=== PATIENT | male | born 1950 | race Caucasian/White ===

== ENCOUNTER 2024-04-30 08:58 | Inpatient (IN) | payer OTHER ==
[2024-04-30] VITALS (17 sets, daily range): BP systolic 119–159; BP diastolic 44–61
[~2024-04-30] VITALS: Ht 182.9 cm; Wt 113.4 kg
[2024-04-30] MEDS ORDERED: NS 1,000 ML IV SCH ×2 (09:10→11:30)
[2024-04-30] MEDS ORDERED: Aspir 8181 MG PO (09:25)
[2024-04-30] MEDS ORDERED: ALBU90OI INH (09:26)
[2024-04-30] MEDS ORDERED: ATOR40TA PO (09:26)
[2024-04-30] MEDS ORDERED: HYDACE10B PO (09:27)
[2024-04-30] MEDS ORDERED: LISI20 PO (09:28)
[2024-04-30] MEDS ORDERED: METFORMIN HCL500 M2 PO (09:28)
[2024-04-30] MEDS ORDERED: HUMULIN N100 UNIT/6 SC (09:29)
[2024-04-30 09:44] LABS: Base Excess Venous -7.8 mmol/L; Bicarbonate Venous 19.2 mmol/L (24.0-30.0); PCO2 Venous 30.9 mmHg (38-42); pH Blood Venous 7.36 (7.34-7.37)
[2024-04-30 10:20] LABS: Albumin, Blood 3.2 g/dL (3.4-5.0); Albumin/Globulin Ratio 0.9 (0.8-1.8); Bilirubin, Total 0.9 mg/dL (0.1-1.0); Bun/Creatinine Ratio 12.7 (12.0-20.0); Calcium, Blood 9.1 mg/dL (8.5-10.1); Creatinine, Blood 1.57 mg/dL (0.60-1.20); Globulin, Blood 3.6 g/dL (2.2-4.0); Potassium, Blood 4.6 mmol/L (3.5-5.5); Total Protein, Blood 6.8 g/dL (6.4-8.2)
[2024-04-30] MEDS ORDERED: Ampicillin Sod/Sulbactam Sod 3 GM in NS 100 ML IV ONE (10:40)
[2024-04-30] MEDS ORDERED: B-12500 MC2 PO (10:54)
[2024-04-30] MEDS ORDERED: CALCIUM-MAGNES1 EAC9 PO (10:57)
[2024-04-30] MEDS ORDERED: Lactated Ringer's 1,000 ML IV SCH ×2 (11:00→11:50)
[2024-04-30] MEDS ORDERED: propofoL 20 ML IV ONE (11:20)
[2024-04-30] MEDS ORDERED: FentaNYL Citrate 50 MCG/ML 2 ML Injection ONE ×2 (11:20→13:58)
--- NOTE | 2024-04-30 11:27 | NUR ---
PT TO SDS VIA [facility] FROM ER FOR APPENDECTOMY WITH DR CHATMAN. CHART REVIEWED. PLAN OF CARE DISCUSSED WITH PT AND HIS SO. QUESTIONS ANSWERED. PT NPO SINCE [phone].
[2024-04-30] MEDS ORDERED: Bupivacaine 0.5% HCl 5 MG/ML 30MLVIAL ONE (11:30)
[2024-04-30] MEDS ORDERED: Rocuronium Bromide 10 MG/ML 5ML Injection IV ONE ×2 (11:39→12:51)
--- NOTE | 2024-04-30 11:39 | NUR ---
PT TO SDS WITH 18G IN LEFT AC
[2024-04-30] MEDS ORDERED: Ipratropium/Albuterol SulF 2.5-0.5MG/3 ML Amp INH ONE (11:45)
[2024-04-30] MEDS ORDERED: FentaNYL Citrate 50 MCG/ML 2 ML Injection IV PRN (11:50)
[2024-04-30] MEDS ORDERED: Ondansetron HCl 2 MG / ML 2ML Vial IV PRN (11:50)
[2024-04-30] MEDS ORDERED: FLU VACC TS2024-25(6MOS UP)/PF 45 MCG/0.5 ML SYRINGE IM PRN (11:50)
[2024-04-30] MEDS ORDERED: Insulin Regular 100 UNIT/ML 10ML Vial SC SCH ×2 (12:00→16:30)
[2024-04-30] MEDS ORDERED: Sugammadex Sodium 200 MG/2ML SDV (100 MG/ML) ONE ×2 (12:22)
[2024-04-30] MEDS ORDERED: Insulin Regular 100 UNIT/ML 10ML Vial ONE (13:00)
[2024-04-30] MEDS ORDERED: Ondansetron HCl 2 MG / ML 2ML Vial ONE (13:19)
[2024-04-30] MEDS ORDERED: HYDROcodone 5-APAP 325 TAB PO PRN (15:15)
[2024-04-30] MEDS ORDERED: HydrALAZINE HCl 20 MG / ML 1ML Vial IV PRN (15:20)
[2024-04-30] MEDS ORDERED: Nicotine 14 MG PATCH TOP SCH (15:22)
[2024-04-30] MEDS ORDERED: Acetaminophen 325 MG TABLET PO PRN (15:30)
--- NOTE | 2024-04-30 17:48 | NUR ---
SUMMARY PT EATING DINNER AT THIS TIME. COVERED CBG OF 282 PER ORDERS. ABX INFUSING PER ORDERS. PT HAD CRITICAL HIGH LACTIC ACID OF 2.1. NOTIFIED MILLER MISHRA. NO NEW ORDERS AT THIS TIME. PT REPORTS PAIN "GOOD", DOES NOT APPEAR TO BE IN ANY DISTRESS PRESENTLY. DENIES ANY NEEDS. CALL LIGHT IN REACH.
[2024-04-30] MEDS ORDERED: Ampicillin Sod/Sulbactam Sod 3 GM in NS 100 ML IV SCH (18:00)
[2024-04-30] MEDS ORDERED: Lactobacil 2-S.Thermo-Bifido 1 1 Cap PO SCH (21:00)
[2024-04-30] MEDS ORDERED: Insulin NPH 100 Unit / ML 10ML Vial SC SCH (21:00)
[2024-04-30 22:04] LABS: Bun/Creatinine Ratio 14.4 (12.0-20.0); Calcium, Blood 8.4 mg/dL (8.5-10.1); Creatinine, Blood 1.8 mg/dL (0.60-1.20); Potassium, Blood 4.7 mmol/L (3.5-5.5)
--- NOTE | 2024-05-01 04:13 | NUR ---
SHIFT SUMMARY POD 1 LAP APPY PT RESTED FOR MOST OF SHIFT. PAIN MANAGED PER EMAR. TOLERATING PO INTAKE. PT NEEDED TO BE STRAIGHT CATHED DURING THE NIGHT. AWAITING FIRST VOID. PT HAS BEEN OOB WITH FWW AND GB. IV FLUIDS RUNNING PER EMAR WITH ABX. PT HAS NOT PASSED ANY GAS AT THIS TIME. VSS. NO OTHER CONCERNS AT THIS TIME, CALL LIGHT WITHIN REACH
[2024-05-01 04:49] VITALS: BP 149/68
[2024-05-01 06:03] LABS: BASOPHILS ABSOLUTE AUTO 0.05 K/mm3 (0.00-0.23); BASOPHILS PERCENT AUTO 0 % (0-2); EOSINOPHILS ABSOLUTE AUTO 0.04 K/mm3 (0.00-0.68); EOSINOPHILS PERCENT AUTO 0 % (0-6); Hematocrit 37.8 % (37.0-53.0); IMMATURE GRAN ABSOLUTE AUTO 0.05 K/mm3 (0.00-0.10); IMMATURE GRAN PERCENT AUTO 0 % (0-1); LYMPHOCYTES ABSOLUTE AUTO 1.36 K/mm3 (0.84-5.20); LYMPHOCYTES PERCENT AUTO 10 % (21-46); MONOCYTES ABSOLUTE AUTO 0.72 K/mm3 (0.16-1.47); MONOCYTES PERCENT AUTO 5 % (4-13); Mean Corpuscular HGB Conc 34.4 g/dL (31.5-36.5); Mean Corpuscular Volume 93 fL (80-100); NEUTROPHILS ABSOLUTE AUTO 11.03 K/mm3 (1.96-9.15); NEUTROPHILS PERCENT AUTO 83 % (41-73); Platelet Count 267 K/mm3 (150-400); RDW Coefficient Variation 12.7 % (11.7-14.2); RDW Standard Deviation 43.7 fL (35.1-46.3); Red Blood Cell Count 4.06 M/mm3 (4.30-5.90); White Blood Cell Count 13.25 K/mm3 (4.00-11.30)
[2024-05-01 06:19] LABS: Bun/Creatinine Ratio 16.1 (12.0-20.0); Creatinine, Blood 1.43 mg/dL (0.60-1.20)
[2024-05-01 07:55] VITALS: BP 164/75
[2024-05-01] MEDS ORDERED: Aspirin 81 MG TabEC PO SCH (09:00)
[2024-05-01] MEDS ORDERED: Misc. Tablet PO SCH (09:00)
[2024-05-01] MEDS ORDERED: Atorvastatin 40 MG Tab PO SCH (09:00)
[2024-05-01] MEDS ORDERED: Cyanocobalamin 500 MCG Tab PO SCH (09:00)
[2024-05-01] MEDS ORDERED: HYDROcodone 5-APAP 325 TAB PO PRN (10:41)
[2024-05-01 15:01] VITALS: BP 135/76
--- NOTE | 2024-05-01 18:04 | NUR ---
SHIFT SUMMARY POD1 LAP APPY, A/OX4, VSS, TOLERATING PO, VOIDING INDEPENDENTLY, AMBULATING WELL WITH SBA, ABD BINDER PROVIDED WHICH HAS IMPROVED PATIENT COMFORT. CONTINUE ABX AND FLUIDS ORDERED, NO ACUT EVENTS THIS SHIFT, CALL LIGHT IN REACH.
[2024-05-01 19:18] VITALS: BP 148/70
[2024-05-01] MEDS ORDERED: Albuterol 2.5 MG/3 ML VIAL INH PRN (22:20)
[2024-05-02 04:27] VITALS: BP 141/68
--- NOTE | 2024-05-02 04:34 | NUR ---
SHIFT SUMMARY POD 2 LAP APPY PT RESTED DURING THE NIGHT. PAIN MANAGED PER EMAR. TOLERTING PO INTAKE. VOIDING. PT PLACED ON 3L NC DURING THE NIGHT, ALSO HAD B A BREATHIGN TREATMENT. PT DENIES SOB, BUT STATES ITS HARD FOR HIM TO TAKE A DEEP BREATHE DUE TO THE PAIN IN THE ABD. X4 LAP SITES CLOSED WITH WG, C/D/I. PT HAS NOT PASSED ANY GAS AT THIS TIME. VSS, NO OTHER COCERNS AT THIS TIME, CALL LIGHT WITHIN REACH
[2024-05-02 04:40] LABS: BASOPHILS ABSOLUTE AUTO 0.05 K/mm3 (0.00-0.23); BASOPHILS PERCENT AUTO 0 % (0-2); EOSINOPHILS ABSOLUTE AUTO 0.03 K/mm3 (0.00-0.68); EOSINOPHILS PERCENT AUTO 0 % (0-6); Hematocrit 33.8 % (37.0-53.0); Hemoglobin 11.4 g/dL (13.5-17.5); IMMATURE GRAN ABSOLUTE AUTO 0.07 K/mm3 (0.00-0.10); IMMATURE GRAN PERCENT AUTO 1 % (0-1); LYMPHOCYTES ABSOLUTE AUTO 1.22 K/mm3 (0.84-5.20); LYMPHOCYTES PERCENT AUTO 10 % (21-46); MONOCYTES ABSOLUTE AUTO 0.58 K/mm3 (0.16-1.47); MONOCYTES PERCENT AUTO 5 % (4-13); Mean Corpuscular HGB 32.2 pg (26.0-34.0); Mean Corpuscular HGB Conc 33.7 g/dL (31.5-36.5); Mean Corpuscular Volume 96 fL (80-100); Mean Platelet Volume 10.7 fL (9.1-12.4); NEUTROPHILS ABSOLUTE AUTO 10.55 K/mm3 (1.96-9.15); NEUTROPHILS PERCENT AUTO 84 % (41-73); Platelet Count 262 K/mm3 (150-400); RDW Coefficient Variation 12.7 % (11.7-14.2); RDW Standard Deviation 44.7 fL (35.1-46.3); Red Blood Cell Count 3.54 M/mm3 (4.30-5.90)
[2024-05-02 04:57] LABS: Bun/Creatinine Ratio 15.3 (12.0-20.0); Calcium, Blood 8.8 mg/dL (8.5-10.1); Creatinine, Blood 1.31 mg/dL (0.60-1.20)
[2024-05-02 07:37] VITALS: BP 152/56
[2024-05-02] MEDS ORDERED: Polyethylene Glycol 3350 17 gm PO SCH (11:00)
[2024-05-02] MEDS ORDERED: HUMULIN R100 UNIT/2 SC (12:37)
[2024-05-02] MEDS ORDERED: Nicoderm Cq1 EAC1 TOP (12:37)
[2024-05-02] MEDS ORDERED: MIRALAX17 GM PO (12:37)
[2024-05-02] MEDS ORDERED: AMLO5 PO (12:38)
[2024-05-02] MEDS ORDERED: VISBIOME 112.51 EACH PO (12:38)
[2024-05-02] MEDS ORDERED: AMOCLA875 PO (12:38)
--- NOTE | 2024-05-02 14:08 | NUR ---
DISCHARGE SUMMARY POD2 LAP APPY, A/OX4, VSS, TOLERATING PO, AMBULATING WELL WITH FWW, VOIDING INDEPENDENTLY, PAIN TOLERABLE, O2 SATS MAINTIANING GREATER THAN 92%, LAP SITES C/D/I. REMOVED IV ACCESS WHILE DISCUSSING DISCHARGE INSTRUCTIONS INCLUDING HOME CARE, MEDICATIONS, AND FOLLOW UP APPOINTMENTS. NO QUESTIONS AT THIS TIME. ESCORTED OUT VIA WC TO PRIVATE AUTO TO GO HOME.
--- NOTE | 2024-05-03 09:41 | NUR ---
PT'S CAME IN, STATES PT'S RX'S WERE CALLED TO [facility] IN [place] INSTEAD OF [facility], RX'S FOR VISBIOME PROBIOTICS, [facility], AND AUGMENTIN CALLED IN PER PT'S REQUEST, PT'S STATES PT IS REFUSING NICOTINE PATCH, ALREADY HAS REGULAR INSULIN AT HOME AND WILL SAND DRIER MIRALAX OTC.
== END 2024-05-02 13:32 | disposition home or self-care (01) | DRG 853 ==
LOC: ER 08:58 → SURS 11:45
PROVIDERS: Emergency Medicine; Family Medicine; Nurse Practitioner Acute Care; Surgery; ADMIT Student in an Organized Health Care Education/Training Program
PROC: 8E0W4CZ Robotic Assisted Procedure of Trunk Region, Percutaneous Endoscopic Approach (ICD-10-PCS; 2024-04-30)
PROC: 3E03329 Introduction of Other Anti-infective into Peripheral Vein, Percutaneous Approach (ICD-10-PCS; 2024-04-30)
PROC: 0DTJ4ZZ Resection of Appendix, Percutaneous Endoscopic Approach (ICD-10-PCS; principal; 2024-04-30 12:30)
DX: A41.9 Sepsis, unspecified organism (principal); K35.32 Acute appendicitis with perforation, localized peritonitis, and gangrene, without abscess; E87.1 Hypo-osmolality and hyponatremia; E87.20 Acidosis, unspecified; N17.9 Acute kidney failure, unspecified; R65.20 Severe sepsis without septic shock; E11.9 Type 2 diabetes mellitus without complications; E78.5 Hyperlipidemia, unspecified; J44.9 Chronic obstructive pulmonary disease, unspecified; E66.9 Obesity, unspecified; Z68.33 Body mass index [BMI] 33.0-33.9, adult; F17.210 Nicotine dependence, cigarettes, uncomplicated; I10 Essential (primary) hypertension; Z79.82 Long term (current) use of aspirin; Z79.4 Long term (current) use of insulin; Z79.84 Long term (current) use of oral hypoglycemic drugs; Z79.899 Other long term (current) drug therapy
CPT/HCPCS: 36415; 51701; 74177; 80048; 80053; 82803; 82947; 83036; 83605; 83690; 85025; 94640; 94664; 94760; 96365-59; 99285-25; A9270; J0295; J1815; J2405; J2704; J3010; J7030; J7120; Q9967

== ENCOUNTER → 2024-04-30 | Outpatient (CLI) | payer OTHER ==
[~2024-04-30] MED LIST: ALBU90OI INH; AMLO5 PO; AMOCLA875 PO; ATOR40TA PO; Aspir 8181 MG PO; B-12500 MC2 PO; CALCIUM-MAGNES1 EAC9 PO; HUMULIN N100 UNIT/6 SC; HUMULIN R100 UNIT/2 SC; HYDACE10B PO; LISI20 PO; METFORMIN HCL500 M2 PO; MIRALAX17 GM PO; Nicoderm Cq1 EAC1 TOP; OMEP20ER PO; Reglan10 MG PO; VISBIOME 112.51 EACH PO
[2024-04-30 08:53] LABS: BASOPHILS ABSOLUTE AUTO 0.06 K/mm3 (0.00-0.23); BASOPHILS PERCENT AUTO 1 % (0-2); EOSINOPHILS ABSOLUTE AUTO 0.32 K/mm3 (0.00-0.68); EOSINOPHILS PERCENT AUTO 3 % (0-6); Hematocrit 45.3 % (37.0-53.0); Hemoglobin 15.2 g/dL (13.5-17.5); IMMATURE GRAN ABSOLUTE AUTO 0.03 K/mm3 (0.00-0.10); IMMATURE GRAN PERCENT AUTO 0 % (0-1); LYMPHOCYTES ABSOLUTE AUTO 1.62 K/mm3 (0.84-5.20); LYMPHOCYTES PERCENT AUTO 16 % (21-46); MONOCYTES ABSOLUTE AUTO 0.51 K/mm3 (0.16-1.47); MONOCYTES PERCENT AUTO 5 % (4-13); Mean Corpuscular HGB 31.7 pg (26.0-34.0); Mean Corpuscular HGB Conc 33.6 g/dL (31.5-36.5); Mean Corpuscular Volume 94 fL (80-100); Mean Platelet Volume 11.1 fL (9.1-12.4); NEUTROPHILS ABSOLUTE AUTO 7.77 K/mm3 (1.96-9.15); NEUTROPHILS PERCENT AUTO 75 % (41-73); Platelet Count 414 K/mm3 (150-400); RDW Coefficient Variation 12.4 % (11.7-14.2); RDW Standard Deviation 43.6 fL (35.1-46.3); White Blood Cell Count 10.31 K/mm3 (4.00-11.30)
[2024-04-30 09:01] LABS: Albumin, Blood 3.6 g/dL (3.4-5.0); Albumin/Globulin Ratio 0.9 (0.8-1.8); Bilirubin, Total 0.9 mg/dL (0.1-1.0); Calcium, Blood 9.4 mg/dL (8.5-10.1); Creatinine, Blood 2.21 mg/dL (0.60-1.20); Globulin, Blood 4.1 g/dL (2.2-4.0); Potassium, Blood 5.7 mmol/L (3.5-5.5); Total Protein, Blood 7.7 g/dL (6.4-8.2)
== END ==
LOC: LAB 08:42 → LAB SHORT 08:42
PROVIDERS: Internal Medicine
DX: R11.10 Vomiting, unspecified (principal)
CPT/HCPCS: 80053; 82010; 83690; 85025

== ENCOUNTER 2024-05-06 16:35 | Emergency (ER) | payer OTHER ==
[~2024-05-06] VITALS: Ht 185.4 cm; Wt 97.5 kg
[~2024-05-06 16:35] MED LIST changes: -OMEP20ER PO; -Reglan10 MG PO
[2024-05-06 19:01] LABS: Hemoglobin 12.4 g/dL (13.5-17.5); Mean Corpuscular HGB 31.6 pg (26.0-34.0); Mean Corpuscular HGB Conc 33.5 g/dL (31.5-36.5); Mean Corpuscular Volume 94 fL (80-100); Platelet Count 472 K/mm3 (150-400); RDW Coefficient Variation 12.9 % (11.7-14.2); RDW Standard Deviation 44.4 fL (35.1-46.3); Red Blood Cell Count 3.92 M/mm3 (4.30-5.90); White Blood Cell Count 9.19 K/mm3 (4.00-11.30)
[2024-05-06 19:25] LABS: Albumin, Blood 2.2 g/dL (3.4-5.0); Albumin/Globulin Ratio 0.5 (0.8-1.8); Bilirubin, Total 0.2 mg/dL (0.1-1.0); Bun/Creatinine Ratio 12.5 (12.0-20.0); Calcium, Blood 9.3 mg/dL (8.5-10.1); Creatinine, Blood 1.04 mg/dL (0.60-1.20); Globulin, Blood 4.3 g/dL (2.2-4.0); Potassium, Blood 4.2 mmol/L (3.5-5.5); Total Protein, Blood 6.5 g/dL (6.4-8.2)
[2024-05-06 19:42] LABS: BASOPHILS ABSOLUTE MAN 0.18 K/mm3 (0.00-0.23); BASOPHILS PERCENT MAN 2 % (0-2); EOSINOPHILS ABSOLUTE MAN 0.45 K/mm3 (0.00-0.68); EOSINOPHILS PERCENT MAN 5 % (0-6); LYMPHOCYTES ABSOLUTE MAN 1.56 K/mm3 (0.84-5.20); LYMPHOCYTES PERCENT MAN 17 % (21-46); MONOCYTES ABSOLUTE MAN 0.91 K/mm3 (0.16-1.47); MONOCYTES PERCENT MAN 10 % (4-13); NEUTROPHILS ABSOLUTE MAN 6.06 K/mm3 (1.96-9.15); SEG NEUTROPHILS PERCENT MAN 66 % (41-73); TOTAL CELLS COUNTED 100
[2024-05-06 20:36] VITALS: BP 119/105
[2024-05-06] MEDS ORDERED: OMEP20ER PO (21:04)
[2024-05-06] MEDS ORDERED: Reglan10 MG PO (21:04)
[2024-05-06] MEDS ORDERED: Omeprazole 20 MG CapCR PO ONE (21:05)
[2024-05-06] MEDS ORDERED: Metoclopramide HCl 5MG / ML 2ML Vial IV ONE (21:05)
== END 2024-05-06 21:27 | disposition home or self-care (01) ==
LOC: ER 16:35
PROVIDERS: Student in an Organized Health Care Education/Training Program
DX: R06.6 Hiccough (principal); J44.9 Chronic obstructive pulmonary disease, unspecified; E78.00 Pure hypercholesterolemia, unspecified; E11.9 Type 2 diabetes mellitus without complications; Z90.49 Acquired absence of other specified parts of digestive tract; Z79.82 Long term (current) use of aspirin; Z79.4 Long term (current) use of insulin; Z79.899 Other long term (current) drug therapy
CPT/HCPCS: 71046; 80053; 85025; 96374; 99283-25; A9270; J2765